=== PATIENT | male | born 1965 | race Caucasian/White ===

== ENCOUNTER 2016-11-05 14:46 | Emergency (ER) | payer BC ==
[~2016-11-05] VITALS: Ht 175.3 cm; Wt 100.3 kg
[~2016-11-05 14:46] MED LIST: B-COTAB18 PO; DOCU-94 PO; FLUO20CA34 PO; OXYC-57 PO
[2016-11-05 14:50] VITALS: BP 148/94; PULSE 102; TEMP 37; O2SAT 95; Ht 175.3 cm; Wt 100.3 kg
[2016-11-05] MEDS ORDERED: AMOX875T PO (15:33)
--- NOTE | 2016-11-05 15:34 | EMERGENCY ROOM VISIT NOTE ---
ED Visit Note First contact with patient: 15:19 CHIEF COMPLAINT: Wound check HISTORY OF PRESENT ILLNESS: This 51-year-old male patient presents to the emergency department ambulatory for a recheck of perianal abscess. The patient has no had complaints. Previous care outlined has been followed without difficulty. The patient states the pain has resolved. The patient is concerned that he did not receive an antibiotic. REVIEW OF SYSTEMS: A 6 system review of systems was completed with positives and pertinent negatives listed in the HPI. ALLERGIES: No known drug allergies MEDICATIONS: Unchanged from previous PMH: Unchanged from previous visit. PHYSICAL EXAM: Vital Signs reviewed, see Nurse's notes. Patient is afebrile, vital signs stable. GENERAL: This is a 51-year-old male, awake, alert, well appearing, no acute distress SKIN: There is an area of incision and drainage in the perianal area. There is no packing present. There is wade pus draining from the area. There is no significant tenderness or erythema. The patient does have an external hemorrhoid as well. NEURO: No sensory or motor deficits noted. EMERGENCY DEPARTMENT COURSE AND DECISION MAKING: The patient was seen and examined. The patient does have wade pus that continues to drain from the area. The patient does state that he overall feels significantly improved. The patient requests an antibiotic. I did agree to give him an antibiotic given the continued purulent drainage. A culture was also obtained. The patient was encouraged to follow-up with Gen. surgery. The case was discussed with Dr. Palencia who agrees with the assessment and treatment plan Problem List Medical Problems: (1) Hemorrhoids Status: Resolved (2) Melanoma Status: Resolved Surgical Problems: (1) H/O knee surgery Status: Chronic Current/Historical Medications Scheduled Amoxicillin & Pot Clavulanate (Augmentin 875-125 mg), 1 TAB PO BID B-Complex Vitamins (Vitamin B Complex), 1 TAB PO DAILY Docusate Sodium (Colace), 100 MG PO BID Fluoxetine Hcl (Prozac), 20 MG PO DAILY Scheduled PRN Oxycodone/Acetaminophen 5MG/325MG (Percocet 5MG/325MG), 1-2 TABLETS PO Q4H PRN for Pain Allergies Coded Allergies: No Known Allergies (Unverified , 11/03/16) Vital Signs Date Time Temp Pulse Resp B/P Pulse Ox O2 Delivery O2 Flow Rate FiO2 1/16/17 14:50 37.0 102 18 148/94 95 Room Air Departure Information Impression Primary Impression: Encounter for wound re-check Dispostion Home / Self-Care Condition GOOD Prescriptions Amoxicillin & Pot Clavulanate (Augmentin 875-125 mg) 1 Tab Tab 1 TAB PO BID for 10 Days, #20 TAB Prov: Aniya Cota PA-C 11/05/16 Referrals No Doctor, Assigned (PCP) Patient Instructions [facility] Additional Instructions Augmentin every 12 hours for 10 days Follow-up with a general surgeon for further evaluation and management Return with any worsening symptoms
[2016-11-05] MEDS ORDERED: OXYC-57 PO (15:36)
[2016-11-05] MEDS ORDERED: DOCU-94 PO (15:36)
--- NOTE | 2016-11-09 14:42 | Pharmacy Progress Note ---
ED Pharmacist Culture FollowUp Date of Service: Nov 09, 2016. Patient with polymicrobial growth from rectal abscess. Patient was sent home with a prescription for Augmentin, which is likely to cover each organism as follows: E. coli - sensitive to ampicillin/sulbactam Group B beta Strep - sensitive to ampicillin Staph aureus - sensitive to oxacillin B. fragilis, B vulgatus, Peptostreptococcus - no sensitivity, but Augmentin likely covers Patient was instructed to return to ED with worsening symptoms. No intervention needed at this time.
== END 2016-11-05 15:56 | disposition home or self-care (01) ==
LOC: C.EDB 14:48 → C.EDD 15:56
DX: Z48.815 Encounter for surgical aftercare following surgery on the digestive system (principal); Z85.820 Personal history of malignant melanoma of skin; Z98.890 Other specified postprocedural states